=== PATIENT | female | born 2000 | race African-American/Black ===

== ENCOUNTER 2022-05-08 07:29 | Emergency (ER) | payer SELFPAY ==
[~2022-05-08] VITALS: Ht 170.2 cm; Wt 77.8 kg
[2022-05-08 07:30] VITALS: BP 128/81
== END 2022-05-08 10:49 | disposition left against medical advice (07) ==
LOC: M ED 07:29
DX: Z53.21 Procedure and treatment not carried out due to patient leaving prior to being seen by health care provider (principal)

== ENCOUNTER 2023-05-13 10:41 | Emergency (ER) | payer OTHER, SELFPAY ==
[~2023-05-13] VITALS: Ht 170.2 cm; Wt 90.2 kg
[2023-05-13] MEDS ORDERED: VITA500T9 (11:05)
[2023-05-13] MEDS ORDERED: HUMU1INJ2 (11:05)
[2023-05-13] MEDS ORDERED: NOVOINJ3 (11:05)
[2023-05-13] MEDS ORDERED: FERR325T19 (11:05)
[2023-05-13] MEDS ORDERED: ASPI-226 (11:05)
[2023-05-13] MEDS ORDERED: PRENTAB9 (11:05)
[2023-05-13] MEDS: ACETAMINOPHEN 500 MG TAB PO ONE (11:23)
[2023-05-13 13:30] VITALS: BP 121/67; TEMP 97.3; O2SAT 100
== END 2023-05-13 13:30 | disposition home or self-care (01) ==
LOC: M ED 10:41 → EDBD 10:41 → M ED 13:30
DX: O26.892 Other specified pregnancy related conditions, second trimester (principal); S39.012A Strain of muscle, fascia and tendon of lower back, initial encounter; O24.419 Gestational diabetes mellitus in pregnancy, unspecified control; V49.40XA Driver injured in collision with unspecified motor vehicles in traffic accident, initial encounter; Z3A.19 19 weeks gestation of pregnancy; Z79.82 Long term (current) use of aspirin; Z79.4 Long term (current) use of insulin; Z79.810 Long term (current) use of selective estrogen receptor modulators (SERMs); Z79.899 Other long term (current) drug therapy; Y92.410 Unspecified street and highway as the place of occurrence of the external cause; Y99.9 Unspecified external cause status; Y93.89 Activity, other specified

== ENCOUNTER → 2023-05-31 | Outpatient (CLI) | payer OTHER ==
[~2023-05-31] MED LIST: ASPI-226; FERR325T19; HUMU1INJ2; NOVOINJ3; PRENTAB9; VITA500T9
[2023-05-31 15:16] LABS: BASO % 0.1 % (0.0-1.0); EOS # 0.1 10^3/uL (0.0-0.5); EOS % 0.6 % (0.0-3.0); HEMATOCRIT 31.9 % (36.0-47.0); HEMOGLOBIN 11.1 g/dl (12.0-15.5); LYMPH # 1.6 10^3/uL (1.5-5.0); LYMPH % 19.6 % (24.0-44.0); MEAN CORPUSCULAR HGB CONC 34.8 g/dl (32.0-36.5); MEAN CORPUSCULAR VOLUME 86.2 fl (80.0-96.0); MONO # 0.5 10^3/uL (0.0-0.8); MONO % 6.7 % (2.0-8.0); NEUTROPHILS # 5.8 10^3/uL (1.5-8.5); NEUTROPHILS % 71.1 % (36.0-66.0); PLATELET COUNT, AUTOMATED 133 10^3/uL (150-450); WHITE BLOOD COUNT 8.1 10^3/uL (4.0-10.0)
[2023-05-31 15:41] LABS: LDH LACTATE DEHYDROGENASE 166 U/L (120-246)
[2023-05-31 15:41] LABS: CREATININE,RANDOM URINE 62.1 MG/DL
[2023-05-31 15:42] LABS: TOTAL PROTEIN,RANDOM URINE < 6.0 MG/DL (0.0-14.0)
[2023-05-31 15:42] LABS: ALBUMIN 3.3 G/DL (3.2-5.2); ALKALINE PHOSPHATASE 37 U/L (46-116); ALT/SGPT 101 U/L (7.0-40); AST/SGOT 33 U/L (<34); BILIRUBIN,TOTAL 0.3 MG/DL (0.3-1.2); BLOOD UREA NITROGEN 8 MG/DL (9-23); CALCIUM LEVEL 9.3 MG/DL (8.5-10.1); CARBON DIOXIDE LEVEL 28 MMOL/L (20-31); CHLORIDE LEVEL 103 MMOL/L (98-107); CREATININE FOR GFR 0.62 MG/DL (0.55-1.30); GLOMERULAR FILTRATION RATE > 60.0 (>60); GLUCOSE, FASTING 132 MG/DL (60-100); SODIUM LEVEL 136 MMOL/L (136-145); TOTAL PROTEIN 6.3 G/DL (5.7-8.2)
== END ==
LOC: M LAB 14:38
PROVIDERS: ATTEND Family Medicine
DX: O09.90 Supervision of high risk pregnancy, unspecified, unspecified trimester (principal); Z3A.00 Weeks of gestation of pregnancy not specified

== ENCOUNTER 2023-09-04 00:17 | Outpatient (CLI) | payer OTHER ==
[~2023-09-04] VITALS: Ht 170.2 cm; Wt 98.7 kg
[2023-09-04 00:31] VITALS: BP 125/78; O2SAT 98
[2023-09-04] MEDS: FAMOTIDINE 20 MG TAB PO ONE (01:10)
[2023-09-04] MEDS: ACETAMINOPHEN 500 MG TAB PO ONE (01:10)
[2023-09-04] MEDS ORDERED: HOME MED LIST COMPLETE! XX SCH (01:10)
[2023-09-04 01:30] LABS: HEMATOCRIT 29.5 % (36.0-47.0); HEMOGLOBIN 10.3 g/dl (12.0-15.5); MEAN CORPUSCULAR HGB CONC 34.9 g/dl (32.0-36.5); PLATELET COUNT, AUTOMATED 101 10^3/uL (150-450); RED BLOOD COUNT 3.43 10^6/uL (4.00-5.40); WHITE BLOOD COUNT 6.2 10^3/uL (4.0-10.0)
[2023-09-04 01:52] LABS: ALBUMIN 2.7 G/DL (3.2-5.2); ALKALINE PHOSPHATASE 133 U/L (46-116); ALT/SGPT 22 U/L (7.0-40); AST/SGOT 17 U/L (<34); BILIRUBIN,TOTAL 0.4 MG/DL (0.3-1.2); BLOOD UREA NITROGEN 10 MG/DL (9-23); CALCIUM LEVEL 9.5 MG/DL (8.5-10.1); CARBON DIOXIDE LEVEL 22 MMOL/L (20-31); CHLORIDE LEVEL 109 MMOL/L (98-107); CREATININE FOR GFR 0.55 MG/DL (0.55-1.30); GLOMERULAR FILTRATION RATE > 60.0 (>60); GLUCOSE, FASTING 99 MG/DL (60-100); POTASSIUM SERUM 3.7 MMOL/L (3.5-5.1); SODIUM LEVEL 140 MMOL/L (136-145); TOTAL PROTEIN 5.8 G/DL (5.7-8.2)
== END 2023-09-04 02:26 | disposition home or self-care (01) ==
LOC: M LDO 00:17
PROVIDERS: ATTEND Specialist
DX: O26.893 Other specified pregnancy related conditions, third trimester (principal); O24.419 Gestational diabetes mellitus in pregnancy, unspecified control; R07.9 Chest pain, unspecified; Z79.4 Long term (current) use of insulin; Z3A.34 34 weeks gestation of pregnancy
CPT/HCPCS: 36415; 59025; 80053; 85027; 93005; G0463